=== PATIENT | female | born 1935 | race Caucasian/White ===

== ENCOUNTER 2016-11-06 18:09 | Emergency (ER) | payer MEDICARE ==
[2016-11-06 14:45] LABS: BASOPHILS 0.2 %; BASOPHILS ABSOLUTE 0.03 10/3/uL (0.0-0.16); EOSINOPHILS 1.1 %; EOSINOPHILS ABSOLUTE 0.14 10/3/uL (0.0-0.53); ER CBC TAT 0 Hrs 03 Mins; HEMATOCRIT 29.4 % (36.0-48.0); HEMOGLOBIN 9.1 g/dL (12.0-16.0); IMMATURE GRANULOCYTES 0.3 %; IMMATURE GRANULOCYTES ABSOLUTE 0.04 10/3/uL (0.0-0.11); LYMPHOCYTES 15.7 %; LYMPHOCYTES ABSOLUTE 2.04 10/3/uL (0.67-4.30); MEAN CORPUSCULAR HEMOGLOB 31.1 pg (26.0-34.0); MEAN CORPUSCULAR VOLUME 100.3 fL (80-100); MEAN PLATELET VOLUME 9.9 fL (9.2-13.0); MONOCYTES 7.9 %; MONOCYTES ABSOLUTE 1.02 10/3/uL (0.21-1.20); NEUTROPHILS 74.8 %; NEUTROPHILS ABSOLUTE 9.72 10/3/uL (2.02-8.40); PLATELET COUNT 312 10/3/uL (150-400); RBC DISTRIBUTION WIDTH 14.3 % (12.0-16.0); RED CELL COUNT 2.93 10/6/uL (4.0-5.6)
[2016-11-06 14:50] LABS: MANUAL DIFF NO %
[2016-11-06 14:55] LABS: BUN (BLOOD UREA NITROGEN) 28 MG/DL (6-23); CALCIUM, SERUM 9.3 MG/DL (8.5-10.4); CHLORIDE, SERUM 99 MMOL/L (96-112); CREATININE 0.75 MG/DL (0.55-1.02); GFR AFRICAN AMERICAN 86 ML/MIN (>=60); GFR NON AFRICAN AMERICAN 74 ML/MIN (>=60); POTASSIUM, SERUM 4.1 MMOL/L (3.5-5.3); SODIUM, SERUM 143 MMOL/L (135-148)
[2016-11-06 14:56] LABS: CO2 (CARBON DIOXIDE) 40 MMOL/L (24-34); GLUCOSE, SERUM 89 MG/DL (60-99)
[2016-11-06 15:45] LABS: ALLENS TEST Pos; BE (BASE EXCESS) 11.8 MEQ/L (0 +/- 2.5); CARBOXYHEMOGLOBIN 3.8 % (0-3); DEVICE NC; HCO3 (ACTUAL BICARBONATE) 39.5 MEQ/L (23-27); INSTRUMENT SERIAL # 8087; METHEMOGLOBIN 0.1 % (0-3); O2 CONTENT 13.3 VOL% (18-24); PCO2 (CO2 TENSION) 73 MMHG (35-45); PO2 (O2 TENSION) 100 MMHG (79-93); SAMPLE Arterial; pH 7.35 (7.37-7.43)
[2016-11-06 17:13] LABS: INSTRUMENT SERIAL # 8087; PCO2 (CO2 TENSION) 64 MMHG (35-45); pH 7.38 (7.37-7.43)
[2016-11-06 17:14] LABS: BE (BASE EXCESS) 10.4 MEQ/L (0 +/- 2.5); CARBOXYHEMOGLOBIN 3.2 % (0-3); HCO3 (ACTUAL BICARBONATE) 37.2 MEQ/L (23-27); HEMOBLOGIN CONTENT 9.5 G/DL (12-16); METHEMOGLOBIN 0.1 % (0-3); O2 CONTENT 12.6 VOL% (18-24); OPERATOR ID 14472; PO2 (O2 TENSION) 85 MMHG (79-93); SAMPLE Arterial
[~2016-11-06 18:09] MED LIST: *UNABLE1; *UNABLE3; ADVAIR250 INH; ATV.5 PO; CLARIT10 PO; DULERA 200 MCG/13 GM INH; DUONEB INH; DYAZIDE1 CAP PO; FERROUS SULF325 M1 PO; HCTZ25B PO; HYDROCHLOROT25 MG PO; KLOR-CON 1010 MEQ PO; LEXAPRO; LEXAPRO10 PO; LISINOPRIL; LISINOPRIL40 MG PO; NICODERM C14 MG/24 H TOP; NICODERM C21 MG/241 TOP; P10 PO; P5 PO; PREDNISONE; PROAIR HFA INH; PROAIR HFA PO; PROVENTSOL INH; REMERON30 MG PO; SEROQUEL50 MG PO; SPIRIVA INH; SPORANOX PO; STERAPRED DS10 MG; SYMBICORT 160/41 INH INH; TESS PO; Z-PAK PO; ZESTRIL20 MG PO; [UNRECOGNIZED DRUG - REMARK]; [UNRECOGNIZED DRUG - REMARK]
== END 2016-11-06 20:01 | disposition home or self-care (01) ==
LOC: ER 18:09
PROVIDERS: Emergency Medicine
DX: J44.1 Chronic obstructive pulmonary disease with (acute) exacerbation (principal); I10 Essential (primary) hypertension; F03.90 Unspecified dementia, unspecified severity, without behavioral disturbance, psychotic disturbance, mood disturbance, and anxiety; F17.200 Nicotine dependence, unspecified, uncomplicated; Z88.0 Allergy status to penicillin; Z79.52 Long term (current) use of systemic steroids; Z79.899 Other long term (current) drug therapy
CPT/HCPCS: 36600; 71010; 80048; 82805; 85025; 93005; 94640; 96374; 99285; J2930

== ENCOUNTER 2016-12-16 16:12 | Emergency (ER) | payer MEDICARE ==
[2016-12-16 13:46] LABS: ALLENS TEST Pos; BE (BASE EXCESS) 3.8 MEQ/L (0 +/- 2.5); CARBOXYHEMOGLOBIN 1.6 % (0-3); HCO3 (ACTUAL BICARBONATE) 25.4 MEQ/L (23-27); HEMOBLOGIN CONTENT 9.6 G/DL (12-16); INSTRUMENT SERIAL # 8087; O2 CONTENT 12.8 VOL% (18-24); PCO2 (CO2 TENSION) 28 MMHG (35-45); PO2 (O2 TENSION) 72 MMHG (79-93); SAMPLE Arterial; pH 7.58 (7.37-7.43)
[2016-12-16 14:57] LABS: BASOPHILS 0.2 %; BASOPHILS ABSOLUTE 0.03 10/3/uL (0.0-0.16); EOSINOPHILS 0.5 %; EOSINOPHILS ABSOLUTE 0.07 10/3/uL (0.0-0.53); HEMATOCRIT 27.9 % (36.0-48.0); HEMOGLOBIN 8.9 g/dL (12.0-16.0); IMMATURE GRANULOCYTES 0.3 %; IMMATURE GRANULOCYTES ABSOLUTE 0.04 10/3/uL (0.0-0.11); LYMPHOCYTES 15.4 %; LYMPHOCYTES ABSOLUTE 2.18 10/3/uL (0.67-4.30); MEAN CORPUS HGB CONC 31.9 g/dL (32.0-36.0); MEAN CORPUSCULAR HEMOGLOB 30.2 pg (26.0-34.0); MEAN PLATELET VOLUME 10.2 fL (9.2-13.0); MONOCYTES 7.9 %; MONOCYTES ABSOLUTE 1.11 10/3/uL (0.21-1.20); NEUTROPHILS 75.7 %; NEUTROPHILS ABSOLUTE 10.69 10/3/uL (2.02-8.40); PLATELET COUNT 377 10/3/uL (150-400); RBC DISTRIBUTION WIDTH 14.4 % (12.0-16.0); RED CELL COUNT 2.95 10/6/uL (4.0-5.6); WHITE BLOOD CELLS 14.1 10/3/uL (4.5-10.5)
[2016-12-16 14:58] LABS: MANUAL DIFF NO %; MEAN CORPUSCULAR VOLUME 94.6 fL (80-100)
[2016-12-16 15:07] LABS: INFLUENZA A SCREEN NEGATIVE (NEGATIVE); INFLUENZA B SCREEN NEGATIVE (NEGATIVE)
[2016-12-16 15:12] LABS: BUN (BLOOD UREA NITROGEN) 26 MG/DL (6-23); CHLORIDE, SERUM 107 MMOL/L (96-112); CREATININE 0.77 MG/DL (0.55-1.02); GFR AFRICAN AMERICAN 83 ML/MIN (>=60); GFR NON AFRICAN AMERICAN 72 ML/MIN (>=60); GLUCOSE, SERUM 86 MG/DL (60-99); SGOT(AST) 15 U/L (5-40); SGPT(ALT) 13 U/L (5-65); SODIUM, SERUM 145 MMOL/L (135-148); TOTAL BILIRUBIN 0.7 MG/DL (0-1.2); TOTAL PROTEIN 6.5 G/DL (6.0-8.5)
[2016-12-16 15:13] LABS: A/G RATIO 1.1 (0.7-1.9); ALBUMIN 3.4 G/DL (3.5-5.0); ALKALINE PHOSPHATASE 62 U/L (45-117); CO2 (CARBON DIOXIDE) 28 MMOL/L (24-34); GLOBULIN 3.1 G/DL (2.5-4.1)
== END 2016-12-16 18:55 | disposition home or self-care (01) ==
LOC: ER 16:12
PROVIDERS: Hospitalist
DX: J44.1 Chronic obstructive pulmonary disease with (acute) exacerbation (principal); F41.9 Anxiety disorder, unspecified; I10 Essential (primary) hypertension; F17.200 Nicotine dependence, unspecified, uncomplicated; F03.90 Unspecified dementia, unspecified severity, without behavioral disturbance, psychotic disturbance, mood disturbance, and anxiety; Z90.49 Acquired absence of other specified parts of digestive tract; E78.00 Pure hypercholesterolemia, unspecified; Z88.0 Allergy status to penicillin; Z79.2 Long term (current) use of antibiotics; Z79.899 Other long term (current) drug therapy
CPT/HCPCS: 36600; 71010; 80053; 82805; 85025; 87040; 87070; 87205; 87804; 93005; 94644; 96374; 99285; J2930

== ENCOUNTER 2016-12-24 23:07 | Inpatient (IN) | payer MEDICARE ==
--- NOTE | ~2016-12-24 | IDS ---
Interim Discharge Summary [address] [address] NAME: PEYMAN HARTMAN : 34 STATUS : ADM IN PAT#: [id number] AGE: 81 ADM/REG DATE : 12/25/16 MR#: [id number] REPORT SERV DATE: 01/01/17 DICTATED BY: MARINO ALVARADO DATE: 12/31/16 REPORT STATUS : Draft TRANSCRIBED BY: MODL DATE: 12/31/16 ADMISSION DATE: 12/25/2016 DISCHARGE DATE: DATE OF INTERIM SUMMARY: 12/31/2016. CURRENT DIAGNOSES: 1. Acute on chronic hypercapnic hypoxemic respiratory failure. 2. Acute exacerbation of chronic obstructive pulmonary disease. 3. Elevated procalcitonin, on admission. 4. Chronic anemia. 5. Chronic leukocytosis. 6. Chronic thrombocytosis. 7. Iron deficiency history. 8. Hypertension history with hypotension with present illness. 9. Acute kidney injury with hyperkalemia, currently off JENNY inhibitor therapy. 10.Chronic anxiety. 11.Chronic benzodiazepine use. 12.Chronic steroid use. 13.Weight loss. 14.Peripheral arterial disease. 15.Constipation. 16.History of blastomycosis. OPERATIONS AND PROCEDURES: None. PRESENT ILLNESS: This is an 81-year-old white female who was triaged in the emergency room on 12/24/2016 at 2307 hours with shortness of breath. Admission vital signs; blood pressure 129/59, temp 99.4, pulse 115, respirations 32, and O2 saturation 99%. In the emergency room, she was diagnosed as havin. Sepsis syndrome. 2. Anemia. 3. Chronic obstructive pulmonary disease exacerbation. 4. Continued tobacco use. 5. Hypercapnic respiratory failure. She was referred to the Critical Care Service. She was seen by Dr. Liu and admitted as described on admission history and physical examination. Dr. Liu's impression was: 1. Acute on chronic hypercapnic respiratory failure. 2. Exacerbation of underlying chronic obstructive pulmonary disease. 3. Possible pneumonia. 4. History of hypertension. Interim Discharge Summary [address] [place]. [address] NAME: PEYMAN HARTMAN : 34 STATUS : ADM IN PAT#: [id number] AGE: 81 ADM/REG DATE : 12/25/16 MR#: [id number] REPORT SERV DATE: 01/01/17 DICTATED BY: MARINO ALVARADO DATE: 12/31/16 REPORT STATUS : Draft TRANSCRIBED BY: MATILDA DATE: 12/31/16 The patient was admitted to the ICU. She was placed on BiPAP in the emergency room and that was maintained. In addition, she was given Zithromax and Rocephin, albuterol nebs, and Dulera. She was seen by Dr. Luu on 12/26/2016 and 12/27/2016. She was transferred to [place] [address] where she has been seen by the undersigned on 12/28/2016, 12/29/2016, 12/30/2016, and 12/31/2016. In addition, she has been followed by Juan López of the Pulmonary Service. Her influenza screen was negative on admission as were streptococcal and Legionella urinary antigens. A blood culture on admission one of two was positive for Bacillus species thought to be contaminant. No sputum was obtained. Repeat blood cultures were no growth on the . A procalcitonin level on admission was 0.44. Her white count was 22.3, and her admission chest x-ray was thought to show vascular prominence. On 12/29/2016, she was a bit more lethargic. At that time, her bicarbonate was 42, pH 7.43, and pCO2 of 62. She was given 2 doses of Diamox. She has received seven days of Rocephin and five days of Zithromax. There has been a slow but continued improvement in her respiratory symptoms. Today, she has improved dyspnea, minimal if any cough and sputum, and has an O2 saturation of 94% on 1 L. Additional evaluation has included an echocardiogram to evaluate her left ventricular function and assess for right ventricular dysfunction and pulmonary hypertension. It was a technically difficult study with an estimated ejection fraction of 55% with mild diastolic dysfunction. RV size and systolic function was normal. There was no evidence for pulmonary hypertension. During her hospitalization, she developed some hypotension. Her home lisinopril was additionally reduced 50% and then discontinued. Her blood pressures normalized. With her transient hypotension, she developed some acute kidney injury with creatinine increasing from 0.76 on admission to 1.26 on the . She was given additional volume resuscitation, and her creatinine is 1.1. She also developed hyperkalemia which was addressed. She has a chronic anemia. Hemoglobins here have been 8.9, 8.5, 8.5, 7.9, 7.8, 8.2, and 8.5. She has a chronic leukocytosis with white counts bearing from 17 to 22.3 and thrombocytosis with platelet counts ranging from 421 to 528,000. She apparently has seen Hematology in the past. Her ferritin this admission was 63, B12 of 439, TSH 1.17, and a serum protein electrophoresis did not demonstrate a monoclonal protein. Pulmonary has discussed BiPAP. She does not want to proceed with this. Code status has Interim Discharge Summary [address] [address] NAME: PEYMAN HARTMAN : 34 STATUS : ADM IN PAT#: [id number] AGE: 81 ADM/REG DATE : 12/25/16 MR#: [id number] REPORT SERV DATE: 01/01/17 DICTATED BY: MARINO ALVARADO DATE: 12/31/16 REPORT STATUS : Draft TRANSCRIBED BY: MATILDA DATE: 12/31/16 also been discussed, and she requests full code. She has been seen by Physical Therapy and Occupational Therapy, and [facility] versus home with Home Health Care/PT if all goals met is recommended. SNF placement seems most appropriate this time. Hospitalist care to be assumed by Dr. Martínez on 01/01/2017. DD/MATILDA Marino Alvarado M.D. / [id number] CC: Mundo Liu M.D.
--- NOTE | ~2016-12-24 | DS ---
Discharge Summary [facility] [address] [place]. [address] NAME: PEYMAN HARTMAN : 34 STATUS : DIS IN PAT#: [id number] AGE: 82 ADM/REG DATE : 12/25/16 MR#: [id number] REPORT SERV DATE: 01/04/17 DICTATED BY: DWAIN WINTERS DATE: 01/04/17 REPORT STATUS : Draft TRANSCRIBED BY: MODArtemio DATE: 01/04/17 ADMISSION DATE: 12/25/2016 DISCHARGE DATE: 01/04/2017 PRINCIPAL DIAGNOSIS: Acute on chronic hypoxemic respiratory failure in the setting of COPD with exacerbation with advanced lung disease, bronchiectasis, and dementia. SECONDARY DIAGNOSIS: Iron deficiency anemia, weight loss, acute kidney injury. HISTORY OF PRESENT ILLNESS: Please see Dr. Alvarado's dictation 12/28 and interim summary 12/31. HOSPITAL COURSE: The patient received intravenous iron for iron deficiency anemia. She continued optimization of respiratory status. There was a concern about pulmonary fibrosis. A CT of the thorax revealed some bronchiectasis, but no pulmonary fibrosis per se. Pulmonology had signed off. Nothing further to add from their standpoint. Efforts were made to rehabilitate her. She initially declined going to rehabilitation; however, it was apparent that the patient had significant cognitive impairment and that she was not competent to make decisions for herself, being threatened with a competency hearing and not finding relatives willing to take care of her at home. She did [facility] and then went there in satisfactory condition with diet as tolerated, Ensure t.i.d., active physical therapy per facility, following up with [facility] following SNF discharge on the following medications: Prednisone tapering, Dulera DuoNebs p.r.n., multivitamin, Colace, Lexapro, MiraLAX. Greater than 30 minutes were spent in care of this patient on discharge planning on discharge date. DICTATED BY: Michelle Mcrae/MATILDA Dwain Winters M.D. / [id number] CC: Michelle Mcrae M.D.
--- NOTE | ~2016-12-24 | HP ---
History And Physical [place] [address] [facility] [place]. [address] NAME: PEYMAN HARTMAN : 34 STATUS : ADM IN [facility]#: [id number] AGE: 81 ADM/REG DATE : 12/25/16 MR#: [id number] REPORT SERV DATE: 12/25/16 DICTATED BY: AARON ORTIZ DATE: 12/25/16 REPORT STATUS : Draft TRANSCRIBED BY: MODL DATE: 12/25/16 DATE OF ADMISSION: 12/25/2016 TIME: 0200 a.m. HISTORY OF PRESENT ILLNESS: The patient is an 81-year-old white female with advanced COPD, still smoking. She presented to the ER tonight with signs and symptoms consist of excessive acute aspiration of her underlying chronic obstructive pulmonary disease as well as hypercapnic respiratory failure. She started feeling short of breath earlier this evening. She raised her oxygen at home 3 to 4 L, still dyspnea and came in with this. She has some shortness of breath and some wheezing, had slight temperature of 99.4. The patient was in the ER approximately about a week ago for similar issue. X-ray this time may show a small infiltrate in the right lower lobe. PAST MEDICAL HISTORY: Significant for multiple hospitalizations in the past, COPD, history of hypertension, dementia, and tobacco use. She has over 54-[id number]-sbos smoking history. Does not drink. She lives near her son who has Goodwin's disease. FAMILY HISTORY: Otherwise noncontributory. MEDICATIONS: Albuterol nebulizer, Z-Sebastián 250 mg p.o. every six hours, Tessalon 100 mg Perles, Symbicort twice a day 160/4.5, Lexapro 10 mg p.o. daily, lisinopril 40 mg p.o. daily, Ativan 0.5 mg p.o. twice a day, prednisone 10 mg p.o. daily, prednisone 5 mg taper. ALLERGIES: SHE IS ALLERGIC TO PENICILLINS. PHYSICAL EXAMINATION: VITAL SIGNS: On examination, blood pressure 112/59, pulse 115, temperature 99.4, sat 90% on oxygen. GENERAL: Thin-appearing female, in mild distress. HEENT: Head is normocephalic. She is wearing BiPAP. NECK: Supple. No JVD. CHEST: Bilateral wheezing and rhonchi. CARDIAC: S1 and S2. I could not hear any murmurs or gallops. ABDOMEN: Soft and nontender. No masses or organomegaly. EXTREMITIES: No clubbing or cyanosis. Slight edema. Pulses palpable. NEUROLOGIC: Grossly intact, although she is somewhat lethargic. LABORATORY DATA: Initial blood gas showed a pH of 7.35, pCO2 of 33, pO2 of 78 on 32% on BiPAP. Her pH is 7.32, pCO2 of 61, pO2 101 on 32% this nasal cannula. BiPAP was started. Lactate 1.0. Procalcitonin 0.44. Sodium 142, potassium 4.0, chloride 105, CO2 of 33, BUN 27, creatinine 0.76, glucose 116, calcium 8.8, total protein 6.4, albumin 2.6, bilirubin 0.5, alkaline phosphatase 72, ALT 24, AST 15. CBC: H and H 8.5 and 26.5, white count 22,300, platelet count 434,000. Differential not done. Chest x-ray may show a small infiltrate in the right lower lobe. History And Physical [address] [address] NAME: PEYMAN HARTMAN : 34 STATUS : ADM IN [facility]#: [id number] AGE: 81 ADM/REG DATE : 12/25/16 MR#: [id number] REPORT SERV DATE: 12/25/16 DICTATED BY: AARON ORTIZ DATE: 12/25/16 REPORT STATUS : Draft TRANSCRIBED BY: MATILDA DATE: 12/25/16 IMPRESSION: 1. Acute on chronic hypercapnic respiratory failure. 2. Exacerbation of underlying chronic obstructive pulmonary disease. 3. Possible pneumonia. 4. History of hypertension. PLAN: Admit the patient to the ICU. Keep on BiPAP, remeasure blood gases. Continue antibiotic therapy. Check urinary Legionella antigen, urinary streptococcal antigen. The patient is a full code. RP/CANDYL Aaron Ortiz M.D. / [id number] CC: Michelle Ulloa M.D.
[2016-12-24 23:37] LABS: CARBOXYHEMOGLOBIN 1.6 % (0-3); DEVICE NC; HEMOBLOGIN CONTENT 10.6 G/DL (12-16); INSTRUMENT SERIAL # 8087; METHEMOGLOBIN 0.2 % (0-3); O2 CONTENT 14.1 VOL% (18-24); PCO2 (CO2 TENSION) 53 MMHG (35-45); PO2 (O2 TENSION) 78 MMHG (79-93); SAMPLE Arterial; pH 7.39 (7.37-7.43)
[2016-12-24 23:52] LABS: BASOPHILS 0.1 %; BASOPHILS ABSOLUTE 0.02 10/3/uL (0.0-0.16); EOSINOPHILS 0.1 %; EOSINOPHILS ABSOLUTE 0.02 10/3/uL (0.0-0.53); ER CBC TAT 0 Hrs 07 Mins; HEMATOCRIT 26.7 % (36.0-48.0); HEMOGLOBIN 8.5 g/dL (12.0-16.0); IMMATURE GRANULOCYTES 0.4 %; IMMATURE GRANULOCYTES ABSOLUTE 0.08 10/3/uL (0.0-0.11); LYMPHOCYTES 6.7 %; LYMPHOCYTES ABSOLUTE 1.49 10/3/uL (0.67-4.30); MANUAL DIFF NO %; MEAN CORPUS HGB CONC 31.8 g/dL (32.0-36.0); MEAN CORPUSCULAR HEMOGLOB 30.4 pg (26.0-34.0); MEAN CORPUSCULAR VOLUME 95.4 fL (80-100); MEAN PLATELET VOLUME 10.1 fL (9.2-13.0); MONOCYTES 10.9 %; MONOCYTES ABSOLUTE 2.42 10/3/uL (0.21-1.20); NEUTROPHILS 81.8 %; NEUTROPHILS ABSOLUTE 18.23 10/3/uL (2.02-8.40); PLATELET COUNT 434 10/3/uL (150-400); RBC DISTRIBUTION WIDTH 14.9 % (12.0-16.0); WHITE BLOOD CELLS 22.3 10/3/uL (4.5-10.5)
[2016-12-25 00:16] LABS: ALKALINE PHOSPHATASE 72 U/L (45-117); BUN (BLOOD UREA NITROGEN) 27 MG/DL (6-23); CALCIUM, SERUM 8.8 MG/DL (8.5-10.4); CHLORIDE, SERUM 105 MMOL/L (96-112); CREATININE 0.76 MG/DL (0.55-1.02); GFR AFRICAN AMERICAN 85 ML/MIN (>=60); GFR NON AFRICAN AMERICAN 73 ML/MIN (>=60); SGOT(AST) 15 U/L (5-40); SGPT(ALT) 24 U/L (5-65); SODIUM, SERUM 142 MMOL/L (135-148); TOTAL BILIRUBIN 0.5 MG/DL (0-1.2); TOTAL PROTEIN 6.4 G/DL (6.0-8.5)
[2016-12-25 00:19] LABS: A/G RATIO 0.7 (0.7-1.9); ALBUMIN 2.6 G/DL (3.5-5.0); CO2 (CARBON DIOXIDE) 33 MMOL/L (24-34); GLOBULIN 3.8 G/DL (2.5-4.1); GLUCOSE, SERUM 116 MG/DL (60-99)
[2016-12-25 00:55] LABS: PROCALCITONIN 0.44 ng/mL (<0.5)
[2016-12-25 01:25] LABS: INSTRUMENT SERIAL # 8087; PCO2 (CO2 TENSION) 61 MMHG (35-45); PO2 (O2 TENSION) 101 MMHG (79-93); pH 7.32 (7.37-7.43)
[2016-12-25 01:26] LABS: BE (BASE EXCESS) 3.8 MEQ/L (0 +/- 2.5); CARBOXYHEMOGLOBIN 1.5 % (0-3); DEVICE NC; HCO3 (ACTUAL BICARBONATE) 30.7 MEQ/L (23-27); HEMOBLOGIN CONTENT 8.9 G/DL (12-16); METHEMOGLOBIN 0.4 % (0-3); O2 CONTENT 12.1 VOL% (18-24); SAMPLE Arterial
[2016-12-25 04:06] LABS: INSTRUMENT SERIAL # 35151; pH 7.34 (7.37-7.43)
[2016-12-25 04:07] LABS: ALLENS TEST Pos; BE (BASE EXCESS) 3.9 MEQ/L (0 +/- 2.5); BIPAP 16/8 cm.H2O; CARBOXYHEMOGLOBIN 0.7 % (0-3); HCO3 (ACTUAL BICARBONATE) 30.5 MEQ/L (23-27); METHEMOGLOBIN 0.3 % (0-3); O2 CONTENT 12.2 VOL% (18-24); OPERATOR ID 17370; PCO2 (CO2 TENSION) 58 MMHG (35-45); PO2 (O2 TENSION) 91 MMHG (79-93); SAMPLE Arterial
[2016-12-25 04:46] LABS: BASOPHILS 0.1 %; BASOPHILS ABSOLUTE 0.02 10/3/uL (0.0-0.16); EOSINOPHILS 0 %; HEMATOCRIT 26.8 % (36.0-48.0); HEMOGLOBIN 8.5 g/dL (12.0-16.0); IMMATURE GRANULOCYTES 0.2 %; IMMATURE GRANULOCYTES ABSOLUTE 0.04 10/3/uL (0.0-0.11); LYMPHOCYTES 2.3 %; LYMPHOCYTES ABSOLUTE 0.47 10/3/uL (0.67-4.30); MEAN CORPUS HGB CONC 31.7 g/dL (32.0-36.0); MEAN CORPUSCULAR HEMOGLOB 30.2 pg (26.0-34.0); MEAN CORPUSCULAR VOLUME 95.4 fL (80-100); MEAN PLATELET VOLUME 9.7 fL (9.2-13.0); MONOCYTES 2.7 %; MONOCYTES ABSOLUTE 0.56 10/3/uL (0.21-1.20); NEUTROPHILS 94.7 %; NEUTROPHILS ABSOLUTE 19.77 10/3/uL (2.02-8.40); PLATELET COUNT 421 10/3/uL (150-400); RED CELL COUNT 2.81 10/6/uL (4.0-5.6); WHITE BLOOD CELLS 20.9 10/3/uL (4.5-10.5)
[2016-12-25 04:58] LABS: MANUAL DIFF NO %
[2016-12-25 05:15] LABS: BUN (BLOOD UREA NITROGEN) 27 MG/DL (6-23); CALCIUM, SERUM 8.7 MG/DL (8.5-10.4); CHLORIDE, SERUM 105 MMOL/L (96-112); CO2 (CARBON DIOXIDE) 31 MMOL/L (24-34); CREATININE 0.89 MG/DL (0.55-1.02); FREE T4 1.25 NG/DL (0.76-1.46); GFR AFRICAN AMERICAN 70 ML/MIN (>=60); GFR NON AFRICAN AMERICAN 60 ML/MIN (>=60); PHOSPHORUS, SERUM 3.8 MG/DL (2.5-4.5); POTASSIUM, SERUM 4.1 MMOL/L (3.5-5.3); SODIUM, SERUM 140 MMOL/L (135-148)
[2016-12-25 05:21] LABS: GLUCOSE, SERUM 190 MG/DL (60-99)
[2016-12-25] MEDS ORDERED: P20 PO (17:04)
[2016-12-25] MEDS ORDERED: SPIRIVA INH (17:05)
[2016-12-25] MEDS ORDERED: P5 PO (17:06)
[2016-12-25] MEDS ORDERED: ZESTRIL20 MG PO (17:07)
[2016-12-25] MEDS ORDERED: LEXAPRO10 PO (17:09)
[2016-12-26 03:55] LABS: BE (BASE EXCESS) 3.3 MEQ/L (0 +/- 2.5); CARBOXYHEMOGLOBIN 0.1 % (0-3); HCO3 (ACTUAL BICARBONATE) 29.7 MEQ/L (23-27); HEMOBLOGIN CONTENT 8.7 G/DL (12-16); INSTRUMENT SERIAL # 35151; METHEMOGLOBIN 0.3 % (0-3); O2 CONTENT 12.2 VOL% (18-24); OPERATOR ID 32193; PCO2 (CO2 TENSION) 56 MMHG (35-45); PO2 (O2 TENSION) 113 MMHG (79-93); SAMPLE Arterial; pH 7.34 (7.37-7.43)
[2016-12-26 03:56] LABS: ALLENS TEST Pos; BIPAP 16/8 cm.H2O
[2016-12-26 06:03] LABS: BASOPHILS 0 %; EOSINOPHILS 0 %; HEMOGLOBIN 7.9 g/dL (12.0-16.0); IMMATURE GRANULOCYTES 0.5 %; IMMATURE GRANULOCYTES ABSOLUTE 0.09 10/3/uL (0.0-0.11); LYMPHOCYTES 4.2 %; LYMPHOCYTES ABSOLUTE 0.82 10/3/uL (0.67-4.30); MANUAL DIFF NO %; MEAN CORPUS HGB CONC 31.6 g/dL (32.0-36.0); MEAN CORPUSCULAR HEMOGLOB 30.6 pg (26.0-34.0); MEAN CORPUSCULAR VOLUME 96.9 fL (80-100); MEAN PLATELET VOLUME 10.1 fL (9.2-13.0); MONOCYTES 3.9 %; MONOCYTES ABSOLUTE 0.75 10/3/uL (0.21-1.20); NEUTROPHILS 91.4 %; NEUTROPHILS ABSOLUTE 17.79 10/3/uL (2.02-8.40); PLATELET COUNT 476 10/3/uL (150-400); RBC DISTRIBUTION WIDTH 15.1 % (12.0-16.0); RED CELL COUNT 2.58 10/6/uL (4.0-5.6); WHITE BLOOD CELLS 19.5 10/3/uL (4.5-10.5)
[2016-12-26 06:13] LABS: ALBUMIN 2.3 G/DL (3.5-5.0); BUN (BLOOD UREA NITROGEN) 40 MG/DL (6-23); CALCIUM, SERUM 9.4 MG/DL (8.5-10.4); CHLORIDE, SERUM 107 MMOL/L (96-112); CO2 (CARBON DIOXIDE) 32 MMOL/L (24-34); CREATININE 0.75 MG/DL (0.55-1.02); GFR AFRICAN AMERICAN 86 ML/MIN (>=60); GFR NON AFRICAN AMERICAN 74 ML/MIN (>=60); GLUCOSE, SERUM 135 MG/DL (60-99); PHOSPHORUS, SERUM 3.1 MG/DL (2.5-4.5); POTASSIUM, SERUM 4.3 MMOL/L (3.5-5.3); SODIUM, SERUM 142 MMOL/L (135-148)
[2016-12-27 04:07] LABS: HEMATOCRIT 24.1 % (36.0-48.0); HEMOGLOBIN 7.8 g/dL (12.0-16.0); MEAN CORPUS HGB CONC 32.4 g/dL (32.0-36.0); MEAN CORPUSCULAR VOLUME 95.6 fL (80-100); MEAN PLATELET VOLUME 9.6 fL (9.2-13.0); NUCLEATED RED BLOOD CELLS 0.2 /100WBC (0-0); PLATELET COUNT 487 10/3/uL (150-400); RBC DISTRIBUTION WIDTH 14.7 % (12.0-16.0); RED CELL COUNT 2.52 10/6/uL (4.0-5.6); WHITE BLOOD CELLS 21.2 10/3/uL (4.5-10.5)
[2016-12-27 04:08] LABS: BUN (BLOOD UREA NITROGEN) 41 MG/DL (6-23); CALCIUM, SERUM 9.2 MG/DL (8.5-10.4); CHLORIDE, SERUM 105 MMOL/L (96-112); CO2 (CARBON DIOXIDE) 33 MMOL/L (24-34); CREATININE 0.78 MG/DL (0.55-1.02); GFR AFRICAN AMERICAN 82 ML/MIN (>=60); GFR NON AFRICAN AMERICAN 71 ML/MIN (>=60); GLUCOSE, SERUM 133 MG/DL (60-99); MANUAL DIFF YES %; POTASSIUM, SERUM 4.4 MMOL/L (3.5-5.3); SODIUM, SERUM 143 MMOL/L (135-148)
[2016-12-27 04:26] LABS: IMMATURE GRANS ABSOLUTE (CALC) 0.21 10/3/uL (0.0-0.11); LYMPHOCYTES 5 %; LYMPHOCYTES ABSOLUTE (CALC) 1.06 10/3/uL (0.67-4.30); METAMYELOCYTES 1 %; MONOCYTES 2 %; MONOCYTES ABSOLUTE (CALC) 0.42 10/3/uL (0.21-1.20); PLATELET ESTIMATE SLT INC (ADEQUATE); RBC MORPHOLOGY NORM (NORMAL); SEGMENTED NEUTROPHIL (0) 92 %; TOTAL NUCLEATED CELLS 100
[2016-12-28 06:58] LABS: HEMATOCRIT 26.1 % (36.0-48.0); HEMOGLOBIN 8.2 g/dL (12.0-16.0); MEAN CORPUS HGB CONC 31.4 g/dL (32.0-36.0); MEAN CORPUSCULAR VOLUME 95.6 fL (80-100); MEAN PLATELET VOLUME 9.2 fL (9.2-13.0); PLATELET COUNT 474 10/3/uL (150-400); RBC DISTRIBUTION WIDTH 14.7 % (12.0-16.0); RED CELL COUNT 2.73 10/6/uL (4.0-5.6)
[2016-12-28 07:01] LABS: MANUAL DIFF YES %
[2016-12-28 07:09] LABS: BUN (BLOOD UREA NITROGEN) 29 MG/DL (6-23); CALCIUM, SERUM 8.6 MG/DL (8.5-10.4); CHLORIDE, SERUM 104 MMOL/L (96-112); CO2 (CARBON DIOXIDE) 33 MMOL/L (24-34); CREATININE 0.72 MG/DL (0.55-1.02); GFR AFRICAN AMERICAN 90 ML/MIN (>=60); GFR NON AFRICAN AMERICAN 78 ML/MIN (>=60); GLUCOSE, SERUM 81 MG/DL (60-99); POTASSIUM, SERUM 4.5 MMOL/L (3.5-5.3); SODIUM, SERUM 142 MMOL/L (135-148)
[2016-12-28 07:18] LABS: BAND NEUTROPHILS 2 %; IMMATURE GRANS ABSOLUTE (CALC) 0.51 10/3/uL (0.0-0.11); LYMPHOCYTES 14 %; LYMPHOCYTES ABSOLUTE (CALC) 2.38 10/3/uL (0.67-4.30); METAMYELOCYTES 3 %; MONOCYTES 3 %; MONOCYTES ABSOLUTE (CALC) 0.51 10/3/uL (0.21-1.20); PLATELET ESTIMATE SLT INC (ADEQUATE); SEGMENTED NEUTROPHIL (0) 78 %; TOTAL NUCLEATED CELLS 100
[2016-12-28 07:19] LABS: POLYCHROMASIA 1+ (2-5/OIF) (0-1/OIF); TOXIC GRANULATION 1+
[2016-12-28 16:41] LABS: C-REACTIVE PROTEIN 28.9 MG/L (<8.0); FERRITIN 63 NG/ML (8-252); IRON BINDING CAPACITY 274 MCG/DL (225-410); IRON, SERUM 8 MCG/DL (35-150)
[2016-12-29 06:56] LABS: CALCIUM, SERUM 8.7 MG/DL (8.5-10.4); CHLORIDE, SERUM 98 MMOL/L (96-112); CREATININE 0.76 MG/DL (0.55-1.02); GFR AFRICAN AMERICAN 85 ML/MIN (>=60); GFR NON AFRICAN AMERICAN 73 ML/MIN (>=60); GLUCOSE, SERUM 74 MG/DL (60-99); POTASSIUM, SERUM 4.1 MMOL/L (3.5-5.3); SODIUM, SERUM 140 MMOL/L (135-148)
[2016-12-29 06:58] LABS: BUN (BLOOD UREA NITROGEN) 35 MG/DL (6-23); CO2 (CARBON DIOXIDE) 42 MMOL/L (24-34)
[2016-12-29 07:03] LABS: T PROTEIN (ELECT)(NOT OR 5.2 G/DL (6.0-8.5)
[2016-12-29 10:58] LABS: A/G 1.13 RATIO (0.9-2.10); ALB RELATIVE % 53.1 % (60.0-89.0); ALBUMIN (ELECTRO) 2.76 GM/DL (3.2-5.5); ALPHA 1 (ELECTRO) 0.23 GM/DL (0.1-0.4); ALPHA 1 RELAT % (NOT ORD) 4.5 % (1.0-4.0); ALPHA 2 (ELECTRO) 0.98 GM/DL (0.5-1.10); ALPHA 2 RELAT % 18.9 % (4.5-26.0); BETA GLOBULIN (SPE) 0.71 GM/DL (0.60-1.30); BETA RELATIVE % 13.6 % (9.0-22.0); GAMMA GLOBULIN (SPE) 0.51 G/DL (0.70-1.60); GAMMA RELAT % 9.9 % (6.0-22.0)
[2016-12-29 15:18] LABS: ALLENS TEST Neg; BE (BASE EXCESS) 13.3 MEQ/L (0 +/- 2.5); CARBOXYHEMOGLOBIN 0.3 % (0-3); HCO3 (ACTUAL BICARBONATE) 39.4 MEQ/L (23-27); HEMOBLOGIN CONTENT 8.9 G/DL (12-16); INSTRUMENT SERIAL # 35151; METHEMOGLOBIN 0.6 % (0-3); O2 CONTENT 12.3 VOL% (18-24); PCO2 (CO2 TENSION) 62 MMHG (35-45); PO2 (O2 TENSION) 111 MMHG (79-93); SAMPLE Arterial; pH 7.43 (7.37-7.43)
[2016-12-30 06:58] LABS: HEMATOCRIT 27.5 % (36.0-48.0); HEMOGLOBIN 8.5 g/dL (12.0-16.0); MANUAL DIFF YES %; MEAN CORPUS HGB CONC 30.9 g/dL (32.0-36.0); MEAN CORPUSCULAR HEMOGLOB 29.8 pg (26.0-34.0); MEAN CORPUSCULAR VOLUME 96.5 fL (80-100); MEAN PLATELET VOLUME 9.6 fL (9.2-13.0); PLATELET COUNT 528 10/3/uL (150-400); RBC DISTRIBUTION WIDTH 14.8 % (12.0-16.0); RED CELL COUNT 2.85 10/6/uL (4.0-5.6); WHITE BLOOD CELLS 19.5 10/3/uL (4.5-10.5)
[2016-12-30 07:03] LABS: CALCIUM, SERUM 8.9 MG/DL (8.5-10.4); CHLORIDE, SERUM 100 MMOL/L (96-112); CO2 (CARBON DIOXIDE) 38 MMOL/L (24-34); CREATININE 0.91 MG/DL (0.55-1.02); GFR AFRICAN AMERICAN 68 ML/MIN (>=60); GFR NON AFRICAN AMERICAN 59 ML/MIN (>=60); GLUCOSE, SERUM 87 MG/DL (60-99); POTASSIUM, SERUM 4.2 MMOL/L (3.5-5.3); SODIUM, SERUM 141 MMOL/L (135-148)
[2016-12-30 07:04] LABS: BUN (BLOOD UREA NITROGEN) 42 MG/DL (6-23)
[2016-12-30 07:44] LABS: BAND NEUTROPHILS 2 %; IMMATURE GRANS ABSOLUTE (CALC) 0.39 10/3/uL (0.0-0.11); LYMPHOCYTES 11 %; LYMPHOCYTES ABSOLUTE (CALC) 2.15 10/3/uL (0.67-4.30); METAMYELOCYTES 2 %; MONOCYTES 1 %; NEUTROPHILS ABSOLUTE (CALC) 16.77 10/3/uL (2.02-8.40); PLATELET ESTIMATE SLT INC (ADEQUATE); SEGMENTED NEUTROPHIL (0) 84 %; TOTAL NUCLEATED CELLS 100
[2016-12-30 07:45] LABS: HYPOCHROMIA 1+ (3-10/OIF) (0-2/OIF); POLYCHROMASIA 1+ (2-5/OIF) (0-1/OIF); TOXIC GRANULATION 1+
[2016-12-31 07:24] LABS: CALCIUM, SERUM 8.7 MG/DL (8.5-10.4); CHLORIDE, SERUM 100 MMOL/L (96-112); CO2 (CARBON DIOXIDE) 39 MMOL/L (24-34); CREATININE 1.26 MG/DL (0.55-1.02); GFR AFRICAN AMERICAN 46 ML/MIN (>=60); GFR NON AFRICAN AMERICAN 40 ML/MIN (>=60); GLUCOSE, SERUM 86 MG/DL (60-99); SODIUM, SERUM 139 MMOL/L (135-148)
[2016-12-31 07:27] LABS: BUN (BLOOD UREA NITROGEN) 53 MG/DL (6-23); POTASSIUM, SERUM 5.6 MMOL/L (3.5-5.3)
[2016-12-31 18:57] LABS: BUN (BLOOD UREA NITROGEN) 51 MG/DL (6-23); CALCIUM, SERUM 8.8 MG/DL (8.5-10.4); CHLORIDE, SERUM 101 MMOL/L (96-112); CREATININE 1.11 MG/DL (0.55-1.02); GFR AFRICAN AMERICAN 54 ML/MIN (>=60); GFR NON AFRICAN AMERICAN 46 ML/MIN (>=60); SODIUM, SERUM 135 MMOL/L (135-148)
[2016-12-31 18:59] LABS: CO2 (CARBON DIOXIDE) 31 MMOL/L (24-34); GLUCOSE, SERUM 120 MG/DL (60-99); POTASSIUM, SERUM 6.6 MMOL/L (3.5-5.3)
[2017-01-01 06:44] LABS: HEMATOCRIT 25.7 % (36.0-48.0); HEMOGLOBIN 8.2 g/dL (12.0-16.0); MEAN CORPUS HGB CONC 31.9 g/dL (32.0-36.0); MEAN CORPUSCULAR HEMOGLOB 30.1 pg (26.0-34.0); MEAN CORPUSCULAR VOLUME 94.5 fL (80-100); MEAN PLATELET VOLUME 9.1 fL (9.2-13.0); PLATELET COUNT 473 10/3/uL (150-400); RBC DISTRIBUTION WIDTH 15.1 % (12.0-16.0); RED CELL COUNT 2.72 10/6/uL (4.0-5.6); WHITE BLOOD CELLS 19.7 10/3/uL (4.5-10.5)
[2017-01-01 06:47] LABS: MANUAL DIFF YES %
[2017-01-01 07:01] LABS: CALCIUM, SERUM 8.5 MG/DL (8.5-10.4); CHLORIDE, SERUM 105 MMOL/L (96-112); CO2 (CARBON DIOXIDE) 33 MMOL/L (24-34); CREATININE 0.81 MG/DL (0.55-1.02); GFR AFRICAN AMERICAN 78 ML/MIN (>=60); GFR NON AFRICAN AMERICAN 68 ML/MIN (>=60); POTASSIUM, SERUM 4.7 MMOL/L (3.5-5.3)
[2017-01-01 07:02] LABS: BUN (BLOOD UREA NITROGEN) 44 MG/DL (6-23); GLUCOSE, SERUM 94 MG/DL (60-99); SODIUM, SERUM 142 MMOL/L (135-148)
[2017-01-01 07:41] LABS: BAND NEUTROPHILS 1 %; EOSINOPHILS 1 %; LYMPHOCYTES 8 %; LYMPHOCYTES ABSOLUTE (CALC) 1.58 10/3/uL (0.67-4.30); MONOCYTES 5 %; MONOCYTES ABSOLUTE (CALC) 0.99 10/3/uL (0.21-1.20); NEUTROPHILS ABSOLUTE (CALC) 16.94 10/3/uL (2.02-8.40); SEGMENTED NEUTROPHIL (0) 85 %; TOTAL NUCLEATED CELLS 100
[2017-01-01 07:42] LABS: ELLIPTOCYTES 1+ (3-10/OIF) (0-2/OIF); HELMET CELLS OCC (0-2/OIF); PLATELET ESTIMATE SLT INC (ADEQUATE); POIKILOCYTOSIS 1+ (5-10/OIF) (0-5/OIF); SCHISTOCYTES OCC (0-2/OIF)
[2017-01-02 05:11] LABS: CALCIUM, SERUM 8.7 MG/DL (8.5-10.4); CHLORIDE, SERUM 105 MMOL/L (96-112); CO2 (CARBON DIOXIDE) 32 MMOL/L (24-34); CREATININE 0.79 MG/DL (0.55-1.02); GFR AFRICAN AMERICAN 81 ML/MIN (>=60); GFR NON AFRICAN AMERICAN 70 ML/MIN (>=60); GLUCOSE, SERUM 88 MG/DL (60-99); POTASSIUM, SERUM 4.4 MMOL/L (3.5-5.3); SODIUM, SERUM 140 MMOL/L (135-148)
[2017-01-02 05:13] LABS: BUN (BLOOD UREA NITROGEN) 32 MG/DL (6-23)
[2017-01-04 05:50] LABS: BASOPHILS 0.1 %; BASOPHILS ABSOLUTE 0.02 10/3/uL (0.0-0.16); EOSINOPHILS 0.7 %; EOSINOPHILS ABSOLUTE 0.12 10/3/uL (0.0-0.53); HEMATOCRIT 25.6 % (36.0-48.0); HEMOGLOBIN 8.3 g/dL (12.0-16.0); IMMATURE GRANULOCYTES 1.6 %; IMMATURE GRANULOCYTES ABSOLUTE 0.29 10/3/uL (0.0-0.11); LYMPHOCYTES 17.1 %; LYMPHOCYTES ABSOLUTE 3.01 10/3/uL (0.67-4.30); MEAN CORPUS HGB CONC 32.4 g/dL (32.0-36.0); MEAN CORPUSCULAR HEMOGLOB 30.6 pg (26.0-34.0); MEAN CORPUSCULAR VOLUME 94.5 fL (80-100); MEAN PLATELET VOLUME 9.3 fL (9.2-13.0); MONOCYTES 8.3 %; MONOCYTES ABSOLUTE 1.46 10/3/uL (0.21-1.20); NEUTROPHILS 72.2 %; PLATELET COUNT 393 10/3/uL (150-400); RBC DISTRIBUTION WIDTH 15.2 % (12.0-16.0); RED CELL COUNT 2.71 10/6/uL (4.0-5.6); WHITE BLOOD CELLS 17.6 10/3/uL (4.5-10.5)
[2017-01-04 05:53] LABS: MANUAL DIFF NO %
[2017-01-04 06:11] LABS: BUN (BLOOD UREA NITROGEN) 31 MG/DL (6-23); CHLORIDE, SERUM 104 MMOL/L (96-112); CO2 (CARBON DIOXIDE) 31 MMOL/L (24-34); GFR AFRICAN AMERICAN 93 ML/MIN (>=60); GFR NON AFRICAN AMERICAN 80 ML/MIN (>=60); GLUCOSE, SERUM 89 MG/DL (60-99); POTASSIUM, SERUM 4.8 MMOL/L (3.5-5.3); SODIUM, SERUM 139 MMOL/L (135-148)
== END 2017-01-04 15:57 | DRG 189 ==
LOC: ER 23:07 → CCU 12-25 01:52 → 6NO 12-27 16:21
PROVIDERS: Hospitalist; Internal Medicine; Internal Medicine Critical Care Medicine; Internal Medicine Pulmonary Disease
PROC: 5A09357 Assistance with Respiratory Ventilation, Less than 24 Consecutive Hours, Continuous Positive Airway Pressure (ICD-10-PCS; principal; 2016-12-25)
DX: J96.22 Acute and chronic respiratory failure with hypercapnia (principal); N17.9 Acute kidney failure, unspecified; J44.0 Chronic obstructive pulmonary disease with (acute) lower respiratory infection; I95.2 Hypotension due to drugs; J44.1 Chronic obstructive pulmonary disease with (acute) exacerbation; R13.12 Dysphagia, oropharyngeal phase; Z99.81 Dependence on supplemental oxygen; I10 Essential (primary) hypertension; F17.210 Nicotine dependence, cigarettes, uncomplicated; G30.9 Alzheimer's disease, unspecified; F02.80 Dementia in other diseases classified elsewhere, unspecified severity, without behavioral disturbance, psychotic disturbance, mood disturbance, and anxiety; D50.9 Iron deficiency anemia, unspecified; E87.5 Hyperkalemia; F41.9 Anxiety disorder, unspecified; I73.9 Peripheral vascular disease, unspecified; R63.4 Abnormal weight loss; T38.0X5A Adverse effect of glucocorticoids and synthetic analogues, initial encounter; D72.829 Elevated white blood cell count, unspecified; T46.4X5A Adverse effect of angiotensin-converting-enzyme inhibitors, initial encounter; Z88.0 Allergy status to penicillin; Z68.20 Body mass index [BMI] 20.0-20.9, adult; Z79.52 Long term (current) use of systemic steroids
CPT/HCPCS: 36600; 71010; 71250; 74230; 80048; 80053; 80069; 82607; 82728; 82805; 82962; 83540; 83550; 83605; 83735; 83880; 84100; 84132; 84145; 84155; 84165; 84439; 84443; 85025; 86140; 87040; 87070; 87205; 87449; 87641; 92611-GN; 93005; 93306; 94640; 94644; 94660; 96365; 96366; 96375; 97110-GO; 97110-GP; 97116-GP; 97161-GP; 97166-GO; 97530-GP; 97535-GO; 99291; A9270-GY; G8978-CK-GP; G8979-CJ-GP; G8987-CK-GO; G8988-CJ-GO; G8996-CK-GN; G8997-CK-GN; G8998-CK-GN; J0456; J1120; J1750; J2405; J2920